=== PATIENT | female | born 1990 | race African-American/Black ===

== ENCOUNTER 2016-05-20 07:54 | Inpatient (IN) | payer OTHER, MEDICAID ==
--- NOTE | ~2016-05-20 | PN ---
Unit #: [id number] #: [id number] Patient: МАРИЯ GAMBOA [id number] [facility] [address] [place] [address] [id number] MR#: [id number] NAME: МАРИЯ GAMBOA ROOM: [facility] Age: 26 Sex: F Admission Date: 05/20/2016 : 1990 Attending Physician: Jose Royal M.D. Admitting Physician: Jose Royal M.D. Primary Care Physician: Primary Care Physician Veronika HARDWICK PROGRESS NOTES DATE 05/24/2016 DISCUSSION The patient reports some reduction in suicidal ideation when seen today. She is a bit brighter and more understanding of the need for order of consistent rules on the unit. Dictated by... Jose Royal M.D. CB/addison TD: 05/24/2016 14:54 JOB #: [id number] [facility] PROGRESS NOTES X Jose Royal MD PROGRESS NOTE
--- NOTE | ~2016-05-20 | PN ---
Unit #: [id number] #: [id number] Patient: МАРИЯ GAMBOA [id number] [facility] [address] [place] [address] [id number] I MR#: [id number] NAME: МАРИЯ GAMBOA ROOM: [facility] Age: 26 Sex: F Admission Date: 05/20/2016 : 1990 Attending Physician: Jose Royal M.D. Admitting Physician: Jose Royal M.D. Primary Care Physician: No Primary Care Physician [facility] PROGRESS NOTES This is Yessica Bales covering for Dr. Jose Royal at [facility]. DATE 05/21/2016 DISCUSSION Patient's progress responds to treatment at this time. She was found in her bed, resting comfortably. She complains of pain in her hip and her gluteus muscles and said that she hadn't been participating much in treatment today. She reports that she is tolerating the reduction in Cymbalta to 30 mg quite well. She just said that she has been experiencing some tingling in her hands and is not sure if this is related to the reduction in the Cymbalta or not at this point. She said that she is still having "self harm imagery" in her mind and says that she has been having that today. When probed, she says it is like she has visions in her mind of wanting to hand herself or cut herself but that she will not act on that at this time. At this time, mental status reveals a morbidly obese -Lao female appearing her stated age. She was in no apparent physical stress at the time of examination. She was awake, alert and oriented in all spheres. Her mood is mildly dysphoric. Her affect congruent. Her speech is generally well coherent. There were no gross deficits in memory, cognition, and mood. Intelligence is judged to be in the average range based on fund of knowledge and the patient was cooperative throughout the interview. She said that she was having mental imagery of harming herself but no overt comments of suicidal ideation and she said should would not act on any of the imagery that he had in her mind at this time. She denies any psychotic symptoms and her judgement and insight appear to be intact. We will continue to monitor the patient on the unit with cues of 2 minute checks for safety and suicide precautions and encourage her to integrate herself within the milieu and attend groups and treatment programming. Dictated by... GAYLE Lawrence TD: 05/24/2016 11:56 JOB #: [id number] Unit #: [id number] #: [id number] Patient: МАРИЯ GAMBOA PROGRESS NOTES X YESSICA BALES PROGRESS NOTE
--- NOTE | ~2016-05-20 | DS ---
Unit #: [id number] #: [id number] Patient: МАРИЯ GABMOA [id number] [facility] [address] [place] [address] [id number] I MR#: [id number] NAME: МАРИЯ GAMBOA ROOM: [facility] Age: 26 Sex: F Admission Date: 05/20/2016 : 1990 Discharge Date: 05/27/2016 Attending Physician: Jose Royal M.D. Primary Care Physician: Primary Care Physician No DISCHARGE SUMMARY REASON FOR ADMISSION The patient is a 26-year-old female, admitted to the [facility] unit with suicidal ideation. HOSPITAL COURSE The patient was admitted to the [facility] unit and placed on suicide precautions. Cymbalta was reduced from 60 to 30 mg as the patient felt as though this dose of medication had been more effective for her. She was continued on previously prescribed Vyvanse. No other medication changes were undertaken during the patient's stay in the hospital. She did exhibit significant entitlement and frequently complained about the situation on the unit. She also did voice some vague homicidal ideation towards a former co-worker, but had recanted this by the time of her discharge. By 05/27/2016, the patient was in brighter spirits and denied suicidal ideation. As per her request, discharge was ordered. FINAL DIAGNOSES Major depressive disorder, recurrent, moderate; borderline personality disorder. Morbid obesity, polycystic ovarian syndrome. DISPOSITION ON DISCHARGE The patient is discharged on following medications: Vyvanse 40 mg q.a.m. for attention deficit disorder and Cymbalta 30 mg daily for depression. DISCHARGE INSTRUCTIONS No dietary or physical restrictions were placed upon the patient at the time of discharge. FOLLOWUP Followup will take place in the intensive outpatient program provided by this facility and through the auspices of formal providers. PROGNOSIS The patient's prognosis is considered fair. Dictated by... Jose Royal M.D. SHARLENE/sebastian TD: 05/28/2016 03:08 JOB #: [id number] Unit #: [id number] #: [id number] Patient: МАРИЯ GAMBOA DISCHARGE SUMMARY X Jose Royal MD DISCHARGE SUMMARY
--- NOTE | ~2016-05-20 | PN ---
Unit #: [id number] #: [id number] Patient: МАРИЯ GAMBOA [id number] [facility] [address] [place] [address] [id number] MR#: [id number] NAME: МАРИЯ GAMBOA ROOM: [facility] Age: 26 Sex: F Admission Date: 05/20/2016 : 1990 Attending Physician: Jose Royal M.D. Admitting Physician: Jose Royal M.D. Primary Care Physician: Primary Care Physician Veronika HARDWICK PROGRESS NOTES DATE 05/25/2016 DISCUSSION The patient continues to complain of dysphoric mood and homicidal ideation towards a former coworker, she also continues to express that her moods are "up and down." I have attempted today to redirect the patient's expectations of inpatient care and a strong characterologic component to the patient's pathology is very much in evidence. She continues; however, to endorse positive suicidal and homicidal ideation necessitating ongoing inpatient treatment. Dictated by... Jose Royal M.D. CB/riley TD: 05/25/2016 13:09 JOB #: [id number] [facility] PROGRESS NOTES X Jose Royal MD PROGRESS NOTE
--- NOTE | ~2016-05-20 | CO ---
Unit #: [id number] #: [id number] Patient: MARQUITA GAMBOA [id number] [place] [address] [id number] I MR#: [id number] NAME: MARQUITA GAMBOA ROOM: [facility] Age: 26 Sex: F Admission Date: 05/20/2016 : 1990 Attending Physician: Jose Royal M.D. Primary Care Physician: Primary Care Physician No Consultation Date: 05/20/2016 CONSULTATION REPORT SUBJECTIVE Marquita is a 26-year-old admitted with an abnormal urinalysis. She did have some vague complaints of burning with urination. DIAGNOSTIC STUDIES LABORATORY RESULTS: Admission urinalysis showed 1+ bacteria, 5 to 10 wbc's, and 25 to 50 rbc's. ASSESSMENT Urinary tract infection. PLAN Bactrim DS one p.o. b.i.d. x3 days. Dictated by... Jass RamosAEvan. for Kyle Cabrera/sebastian TD: 05/23/2016 20:05 JOB #: [id number] CONSULTATION REPORT X Marielos Hanna CONSULTATION REPORT
--- NOTE | ~2016-05-20 | PN ---
Unit #: [id number] #: [id number] Patient: МАРИЯ GAMBOA [id number] [facility] [address] [place] [address] [id number] I MR#: [id number] NAME: МАРИЯ GAMBOA ROOM: [facility] Age: 26 Sex: F Admission Date: 05/20/2016 : 1990 Attending Physician: Jose Royal M.D. Admitting Physician: Jose Royal M.D. Primary Care Physician: Primary Care Physician Veronika HARDWICK PROGRESS NOTES DATE 05/26/2016 DISCUSSION The patient seems a bit brighter today and is more active in the therapeutic milieu. We are moving towards a.m. discharge. Dictated by... Jose Royal M.D. CB/addison TD: 05/26/2016 15:04 JOB #: [id number] [facility] PROGRESS NOTES X Jsoe Royal MD PROGRESS NOTE
--- NOTE | ~2016-05-20 | PN ---
Unit #: [id number] #: [id number] Patient: МАРИЯ GAMBOA [id number] [facility] [address] [place] [address] [id number] I MR#: [id number] NAME: МАРИЯ GAMBOA ROOM: [facility] Age: 26 Sex: F Admission Date: 05/20/2016 : 1990 Attending Physician: Jose Royal M.D. Admitting Physician: Jose Royal M.D. Primary Care Physician: Primary Care Physician Veronika TAMEZ NOTES DATE 05/23/2016 DISCUSSION The patient is extremely demanding today stating that we are not accommodating her needs with regards to her extreme weight and complaints of back pain. I have explained to the patient that we will provide whatever accommodations we can but that certain accommodations i.e. wish to sit in a chair while on the telephone, wish to have pillows in group etc cannot be accommodated as they are not accordance with unit rules. The patient seems less than optimally understanding of this and exhibits an (1)___ entitlement. She continues to endorse sadness and suicidal ideation. Dictated by... Jose Royal M.D. CB/stephen TD: 05/23/2016 23:06 JOB #: [id number] [facility] TAMEZ NOTES X Jose Royal MD PROGRESS NOTE
--- NOTE | ~2016-05-20 | HP ---
Unit #: [id number] #: [id number] Patient: MARQUITA GAMBOA [id number] [place] [address] [id number] I MR#: [id number] NAME: MARQUITA GAMBOA ROOM: [facility] Age: 26 Sex: F Admission Date: 05/20/2016 : 1990 Attending Physician: Jose Royal M.D. Admitting Physician: Jose Royal M.D. Primary Care Physician: Primary Care Physician No HISTORY AND PHYSICAL HISTORY OF PRESENT ILLNESS Marquita is a 26 year old admitted to [address] [place] [address] with depression and verbalizing wanting to hurt herself. PAST MEDICAL HISTORY 1. Morbid obesity. 2. PCOS. PAST SURGICAL HISTORY T and A. ALLERGIES No known drug allergies. SOCIAL HISTORY She denies cigarettes, alcohol and illicit drug use. FAMILY HISTORY Medically noncontributory. REVIEW OF SYSTEMS CONSTITUTIONAL: No fever or chills. HEENT: Denies any sore throat, ear pain or runny nose. CARDIOVASCULAR: Denies chest pain, irregular heart rhythm or palpitations. CHEST: Denies shortness of breath or cough. No hemoptysis. GASTROINTESTINAL: Denies nausea, vomiting, diarrhea or chronic constipation. ENDOCRINE: Denies history of increased thirst or urination. No recent significant weight loss or gain. GENITOURINARY: Denies dysuria, frequency, or hematuria. SKIN: Denies any rashes. HEMATOLOGIC: Denies history of increased bleeding or bruising. MUSCULOSKELETAL: Denies any hot, swollen joints. No generalized muscle pain. NEUROLOGIC: Denies problems with vision or speech. No frequent, severe headaches. No numbness, tingling or weakness in any extremities. Denies loss of bladder or bowel control. CURRENT MEDICATIONS 1. Cymbalta 30 mg daily. 2. Vyvanse 40 mg daily. 3. Milk of Magnesia p.r.n. 4. Maalox p.r.n. Unit #: [id number] #: [id number] Patient: MARQUITA GAMBOA 5. Tylenol p.r.n. PHYSICAL EXAMINATION GENERAL: Alert, morbidly obese, no apparent distress. VITAL SIGNS: Blood pressure 120/84, heart rate 90, respirations 16, temperature 98.6. WEIGHT: 400. HEIGHT: 5 feet 2 inches. SKIN: Warm and dry without rash or lesion. HEENT: Normocephalic. TMs not viewed. Oral and nasal passages clear. Conjunctivae clear. PERRLA. EOMs intact. Thick coarse hair noted along her chin and jaw line. NECK: Supple without lymphadenopathy or thyromegaly. HEART: Regular rate and rhythm without murmur. LUNGS: Clear. ABDOMEN: Soft, nontender. : Not done. EXTREMITIES: No evidence of cyanosis, clubbing or edema. Moves all without focal deficit. NEUROLOGICAL: Grossly within normal limits. Cranial Nerves: II: Visual claire are intact. III, IV AND : Extraocular movements are intact. Pupils are equal, round and reactive to light. V: Facial sensation is grossly normal. VII: Facial movements and expression are normal. VIII: Auditory acuity grossly intact. IX, X: Uvula is midline. Phonation is normal. XI: Patient shrugs shoulders and turns head normally. XII: Tongue protrudes in the midline. Sensory and Motor Function: Sensory and motor sensation is grossly normal. Motor: moves all extremities well. Coordination: Gait is normal. Deep Tendon Reflexes: Intact. IMPRESSION Psychiatric admission. RECOMMENDATIONS PSYCHIATRIC: Per psychiatrist. MEDICAL: See no contraindications to participate in facility's activities. MEDICAL PROGNOSIS Good. MEDICAL CONDITION Stable. Dictated by... Jass RamosASoco-Kaitlin. for Kyle Cabrera/lenore TD: 05/20/2016 21:56 JOB #: [id number] Unit #: [id number] #: [id number] Patient: MARQUITA GAMBOA HISTORY AND PHYSICAL X Marielos Hanna HISTORY AND PHYSICAL
--- NOTE | ~2016-05-20 | PN ---
Unit #: [id number] #: [id number] Patient: МАРИЯ GAMBOA [id number] [facility] [address] [place] [address] [id number] I MR#: [id number] NAME: МАРИЯ GAMBOA ROOM: [facility] Age: 26 Sex: F Admission Date: 05/20/2016 : 1990 Attending Physician: Jose Royal M.D. Admitting Physician: oJse Royal M.D. Primary Care Physician: Primary Care Physician Veronika HARDWICK PROGRESS NOTES DATE 05/22/2016 DISCUSSION The patient is seclusive in her room today. She offers no new complaints, but continues to report frequent suicidal ideation and does not feel safe outside the hospital. I have encouraged her to increase her participation within the therapeutic milieu. Dictated by... Jose Royal M.D. CB/to TD: 05/22/2016 15:20 JOB #: [id number] [facility] PROGRESS NOTES X Jose Royal MD PROGRESS NOTE
--- NOTE | ~2016-05-20 | PA ---
Unit #: [id number] #: [id number] Patient: МАРИЯ GAMBOA [id number] [facility] [address] [place] [address] [id number] I MR#: [id number] NAME: МАРИЯ GAMBOA ROOM: [facility] Age: 26 Sex: F Admission Date: 05/20/2016 : 1990 Date of Assessment: 05/20/2016 Attending Physician: Jose Royal M.D. Admitting Physician: Jose Royal M.D. Primary Care Physician: Primary Care Physician No PSYCHIATRIC ASSESSMENT IDENTIFYING INFORMATION The patient is a 26-year-old single female admitted to the [address] [place] [address] Unit with increasing symptoms of depression and suicidal and homicidal ideation. CHIEF COMPLAINT Suicidal and homicidal ideation. INFORMANT Patient, reliability is good. HISTORY OF PRESENT ILLNESS The patient is a 26-year-old female who was admitted to the [address] [place] [address] Unit with complaints of depressed mood and suicidal ideation as well as homicidal ideation towards a former co-worker. She reports no intention of acting on these homicidal thoughts. The patient reports that 2 weeks ago, her Cymbalta which she has taken since January of 2016 was increased from 30 to 60 mg, and she reported since that time she has had increasing depression and thoughts of suicide. The patient reports no specific suicide plan at this point. She reports previous suicide attempts while an adolescent. 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 She is working on the master's degree in psychological counseling. The patient reports no abuse of psychoactive substances. She lives with her "life-partner." She denies recent changes in sleep or appetite. She does complain in frequently changing moods and had during yesterday's hospitalization reported suicidal plan of hanging herself, jumping off of bridge, or cutting herself. PAST PSYCHIATRIC HISTORY The patient reports psychiatric hospitalization as an adolescent. She is currently followed at the [facility] Department of Psychiatry and is prescribed Vyvanse and Cymbalta. PAST MEDICAL HISTORY The patient suffers from morbid obesity and polycystic ovarian syndrome. MEDICATIONS Cymbalta and Vyvanse. ALLERGIES None reported. FAMILY HISTORY Unit #: [id number] #: [id number] Patient: МАРИЯ GAMBOA Noncontributory. SOCIAL HISTORY The patient lives with her life-partner. Her vocational and educational history are described previously. She is not a smoker, and denies abuse of psychoactive substances. MENTAL STATUS EXAMINATION Examination at this time reveals the patient to be a morbidly obese female appearing her stated age. She is in no apparent physical distress at the time of the examination. She is awake, alert, and oriented in all spheres. Her mood is mildly dysphoric, her affect congruent. Speech is generally well-coherent. There are no gross deficits in memory or cognition noted. Intelligence is judged to be in the average range based on fund of knowledge. The patient is cooperative throughout the interview. She is currently again endorsing positive suicidal and homicidal ideation. She denies any psychotic symptoms. Her judgment and insight appear to be intact. ASSETS AND LIABILITIES The patient's assets: Motivation for change. Liabilities: Possible characterologic pathology. DIAGNOSTIC IMPRESSION 1. Posttraumatic stress disorder by history. 2. Major depressive disorder, recurrent, moderate. 3. Morbid obesity. 4. Polycystic ovarian syndrome. TREATMENT PLAN The most obvious course of treatment at this point would be reduction in the patient's Cymbalta dose from 16 back to 30 mg daily as the patient reports an adverse response to increased dose of Cymbalta. Further consideration may be given to initiation of establishing medications such as lamotrigine as the patient remains on suicide precautions. Appropriate duty to warn will be attended to. ESTIMATED LENGTH OF STAY 5 to 7 days. Dictated by... Jose Royal M.D. Joe TD: 05/20/2016 14:37 JOB #: [id number] Unit #: [id number] #: [id number] Patient: МАРИЯ GAMBOA PSYCHIATRIC ASSESSMENT X Jose Royal MD X PSYCHIATRIC ASSESSMENT
[~2016-05-20 07:54] MED LIST: BACTRIM DS TABL1 TAB PO; DIFLUCAN PO; PROVERA PO
[2016-05-20 12:57] LABS: URINE APPEARANCE CLEAR; URINE BILIRUBIN NEG (NEG); URINE BLOOD NEG (NEG); URINE COLOR YELLOW; URINE GLUCOSE NEG (NEG); URINE KETONE NEG (NEG); URINE LEUKOCYTE ESTERASE NEG (NEG); URINE NITRATE NEG (NEG); URINE PROTEIN NEG (NEG)
[2016-05-21 11:03] LABS: BASOPHIL% 0.4 % (0-2.5); EOSINOPHIL# 0.1 X10e3 (0-0.7); EOSINOPHIL% 0.8 % (0.0-7.0); HEMOGLOBIN 12.4 gm/dL (12.0-16.0); LYMPHOCYTE# 3.3 X10e3 (1.0-3.5); LYMPHOCYTE% 36.4 % (17.0-45.0); MEAN CELL VOLUME 81.4 FL (83-96); MEAN CORPUSCULAR HEMOGLOBIN 25.3 PG (28-34); MEAN CORPUSCULAR HGB CONC 31.1 g/dL (30-36); MEAN PLATELET VOLUME 9.1 FL (6.5-11.5); MONOCYTE# 0.5 X10e3 (0-1.0); NEUTROPHIL% 56.4 % (40-75); PLATELET COUNT 253 X10e3 (140-420); RED BLOOD COUNT 4.92 X10e (3.90-5.30); RED CELL DISTRIBUTION WIDTH 16.3 % (11.0-15.5); WHITE BLOOD COUNT 8.9 X10e3 (4.0-10.5)
[2016-05-21 11:05] LABS: DIFF IND NO
[2016-05-21 11:44] LABS: THYROID STIMULATING HORMONE 0.57 uIU/ml (0.34-5.60)
[2016-05-21 11:51] LABS: FREE THYROXIN (T4) 1.03 ng/dL (0.58-1.64)
[2016-05-21 12:05] LABS: ALBUMIN SERUM 3.6 g/dL (3.5-5.0); ALKALINE PHOSPHATASE 63 U/L (32-92); ALT (SGPT) 21 U/L (10-40); AST (SGOT) 17 U/L (10-42); BILIRUBIN,TOTAL 0.5 mg/dL (0.2-2.0); BLOOD UREA NITROGEN 11 mg/dL (9-23); BUN/CREATININE RATIO 18.33; CALCIUM SERUM 9.2 mg/dL (8.4-10.2); CARBON DIOXIDE 27 mmol/L (22-31); CHLORIDE 104 mmol/L (100-111); CREATININE SERUM 0.6 mg/dL (0.6-1.4); GLOM FILT RATE Estimated ABOVE60 mL/min (>60); GLUCOSE FASTING 90 mg/dL (70-110); POTASSIUM 4.8 mmol/L (3.5-5.1); PROTEIN TOTAL SERUM 7.2 g/dL (6.0-8.3); SODIUM 138 mmol/L (135-145)
== END 2016-05-27 15:52 | disposition home or self-care (01) | DRG 882 ==
LOC: P2S 07:54 → P2L 18:28 → P2S 05-21 21:49 → P2L 05-21 21:52
PROVIDERS: Specialist
DX: F43.10 Post-traumatic stress disorder, unspecified (principal); F33.1 Major depressive disorder, recurrent, moderate; R45.851 Suicidal ideations; N39.0 Urinary tract infection, site not specified; E66.01 Morbid (severe) obesity due to excess calories; E28.2 Polycystic ovarian syndrome; R45.850 Homicidal ideations; F60.3 Borderline personality disorder; F98.8 Other specified behavioral and emotional disorders with onset usually occurring in childhood and adolescence
CPT/HCPCS: 80053; 81003; 84439; 84443; 84703; 85025; 90688

== ENCOUNTER → 2016-06-16 | Outpatient (CLI) | payer OTHER, MEDICAID ==
--- NOTE | ~2016-06-16 | CT57 ---
[facility] A Service of [facility] RADIOLOGY TEXT RESULTS PATIENT: МАРИЯ GAMBOA LOCATION: [facility] : [birth year] UNIT #: [id number] AGE: [address]: RANULFO GALICIA APRN SEX: F ORDER DR: [id number] [place], [place] [address] [id number] MR#: [id number] Acc #: [id number] NAME: МАРИЯ GAMBOA : 1990 SEX: F STUDY DATE/TIME: 06/16/2016 10:39 UNIT: [facility]AT ROOM: STUDY DESCRIPTION: CT Chest Wo Cont Attending Physician: Ranulfo Galicia Aprn Referring Physician: Ranulfo Galicia Aprn Ordering Physician: Physician Non-Staff Primary Care Physician: Ranulfo Galicia Aprn MEDICAL IMAGING REPORT This report is preliminary unless electronic signature is present EXAM CT of the chest without contrast HISTORY 26-year-old female with follow-up pulmonary nodule on outside CT scan. TECHNIQUE CT of the chest was performed without contrast. Coronal and sagittal reformatted images obtained. This CT exam was performed with one or more of the following radiation dose reduction techniques: automatic exposure control, adjustment of mA and/or kV according to patient size, and iterative reconstruction. COMPARISON Outside chest CT from 10/06/2014 FINDINGS There is a calcified granuloma in the right upper lobe. There is some stable minimal ground-glass change and bronchial wall thickening in the right upper lobe. There is a stable micronodule in the left upper lobe on image 44. There is no suspicious pulmonary nodule. Calcified mediastinal and hilar lymph nodes. No pleural effusion. Imaging of the upper abdomen is non-diagnostic due to extensive artifact. There is no obvious osseous abnormality. IMPRESSION There is stable calcified granuloma in the right upper lobe and some chronic appearing ground-glass change which may represent some mild fibrotic change. There is no suspicious pulmonary nodule. The exam is unchanged compared with 2015. [facility] A Service of [facility] RADIOLOGY TEXT RESULTS PATIENT: МАРИЯ GAMBOA LOCATION: [facility] : 88 UNIT #: [id number] AGE: [address]: RANULFO GALICIA APRN SEX: F ORDER DR: Dictated by... Anoop Clark M.D. THIS IS AN ELECTRONICALLY VERIFIED REPORT Anoop Clark M.D. at 06/17/2016 5:01 PM Allegra TD: 06/17/2016 10:06 JOB #: [id number] MEDICAL IMAGING REPORT Page 1 of 1 COPY
== END | disposition home or self-care (01) ==
LOC: CCAT 10:26
DX: R91.1 Solitary pulmonary nodule (principal); J84.10 Pulmonary fibrosis, unspecified
CPT/HCPCS: 71250